=== PATIENT | female | born 1940 | race Caucasian/White ===

== ENCOUNTER 2022-08-21 07:53 | Day surgery (SDC) | payer MEDICARE, BC ==
[2022-08-21] VITALS (12 sets, daily range): BP systolic 155–180; BP diastolic 61–87
[~2022-08-21] VITALS: Ht 154.9 cm; Wt 74.2 kg
[~2022-08-21 07:53] MED LIST: ASCO500C18 PO; ASPI81TA52 PO; ATOR20TA PO; CALC-336 PO; CHOL500049 PO; FISH OIL OMEGA 3 PO; FLAX10007 PO; LOSA100T58 PO; MAGN200T PO; MULT-1085 PO; NAPR220T67 PO; PROBIOTIC 10 PO; PSYL PO; TOLT4CAP28 PO; UBID200C18 PO; VITA400T10 PO; cefazolin 2gm/D5W 100mL 100 ML IV ONE; famotidine 20mg tablet PO ONE; ringers solution, lacted 1,000 ML IV SCH
[2022-08-21 09:51] LABS: BASOPHILS % (AUTO) 0.6 % (0-1); EOSINOPHILS # (AUTO) 0.2 X10'3 (0-0.9); EOSINOPHILS % (AUTO) 2.6 % (0-6); HEMATOCRIT 43.1 % (35.0-45.0); HEMOGLOBIN 14.2 g/dl (12.0-16.0); LYMPHOCYTES # (AUTO) 1.8 X10'3 (1.1-4.8); LYMPHOCYTES % (AUTO) 25.9 % (21-51); MEAN CORPUSCULAR HEMOGLOBIN 29.9 PG (27.0-31.0); MEAN CORPUSCULAR HGB CONC 32.9 g/dL (33.0-36.5); MEAN PLATELET VOLUME 7.7 FL (7.4-10.4); MONOCYTES # (AUTO) 0.5 X10'3 (0-0.9); MONOCYTES % (AUTO) 7.5 % (2-12); NEUTROPHILS # (AUTO) 4.4 X10'3 (1.8-7.7); NEUTROPHILS % (AUTO) 63.4 % (42-75); PLATELET COUNT 182 X10'3 (140-440); RED BLOOD COUNT 4.74 X10'6 (4.20-5.60); RED CELL DISTRIBUTION WIDTH 13.9 % (11.5-14.5)
[2022-08-21 10:03] LABS: ALANINE AMINOTRANSFERASE 13 U/L (12-78); ALBUMIN 3.4 G/DL (3.4-5.0); ALBUMIN/GLOBULIN RATIO 1.1 (1.1-1.5); ALKALINE PHOSPHATASE 88 IU/L (46-116); ANION GAP 6 (8-16); ASPARTATE AMINO TRANSFERASE 23 U/L (10-37); BILIRUBIN,TOTAL 0.6 MG/DL (0.1-1.0); BLOOD UREA NITROGEN 15 MG/DL (7-18); BUN/CREATININE RATIO 21.7 (10.0-20.0); CALCIUM 8.8 MG/DL (8.5-10.1); CHLORIDE 110 MMOL/L (99-107); CREATININE 0.69 MG/DL (0.40-0.90); GLUCOSE 98 MG/DL (70-104); SODIUM 143 MMOL/L (135-145); TOTAL CARBON DIOXIDE 26.6 MMOL/L (24-32); TOTAL PROTEIN 6.4 G/DL (6.4-8.2); eGFR 82 ML/MIN
[2022-08-21] MEDS ORDERED: bacitracin 15gm ointment TP ONE (13:27)
[2022-08-21] MEDS ORDERED: BUPIVAcaine/PF 2.5 mg/ml (0.25%) 30ml vial IJ ONE ×2 (13:35→15:31)
[2022-08-21] MEDS ORDERED: BUPIVAcaine/PF 2.5 mg/ml (0.25%) 30ml vial ONE (15:00)
[2022-08-21] MEDS ORDERED: sevoflurane 250ml liquid IH ONE (15:02)
[2022-08-21] MEDS ORDERED: fentaNYL/PF 50MCG/1 ML 2ML syringe ONE (15:02)
[2022-08-21] MEDS ORDERED: midazolam 1 mg/ML 2ml injection ONE (15:02)
[2022-08-21] MEDS ORDERED: dexamethasone sod phosphate 4mg/ml inj. ONE (15:03)
[2022-08-21] MEDS ORDERED: propofol inj 20 ML IV ONE (15:03)
[2022-08-21] MEDS ORDERED: ondansetron/PF 4mg/2ml inj ONE (15:03)
[2022-08-21] MEDS ORDERED: ROPIVAcaine 0.5% (5mg/ml) 30ml vial ONE (15:03)
[2022-08-21] MEDS ORDERED: LIDOcaine 2% (20mg/ml) 5ml vial ONE (15:03)
[2022-08-21] MEDS ORDERED: ringers solution, lacted 1,000 ML IV SCH (15:40)
[2022-08-21] MEDS ORDERED: morphine 2 MG/ML inj. syringe IV PRN (15:40)
[2022-08-21] MEDS ORDERED: hydrALAZINE 20mg/ml inj. IV PRN (15:40)
[2022-08-21] MEDS ORDERED: ondansetron/PF 4mg/2ml inj IV PRN (15:40)
[2022-08-21] MEDS ORDERED: labetalol 20mg/4ml (5mg/ml) syringe IV PRN (15:40)
[2022-08-21] MEDS ORDERED: morphine 4 MG/ML inj SYRINge IV PRN (15:40)
[2022-08-21] MEDS ORDERED: fentaNYL/PF 50MCG/1 ML 2ML syringe IV PRN ×2 (15:40)
--- NOTE | 2022-08-21 16:14 | NUR ---
Received from OR via [facility], accompanied by Anesthesiologist DR BAUER and report given by Anesthesiologist AND PUMP SERVICER HELPER. PT DROWSY, DENIES PAIN. LEFT FOOT W/BIAS DRSG COVERING DRSG/INCISION FROM TOES TO ABOVE ANKLE CDI. Addendum: 08/21/22 at 1809 by Dulce Moscoso RN Amended: Links added.
--- NOTE | 2022-08-21 17:54 | NUR ---
PT UP W/ASSIST IN WALKING BOOT [place] [facility] [place]. D/C INSTRUCTIONS GIVEN AND GONE OVER W/PT WHO VERBALIZED UNDERSTANDING. PT D/CD TO HOME VIA W/C TO PRIVATE VEHICLE W/O INCIDENT. Addendum: 08/21/22 at 1815 by Dulce Moscoso RN Amended: Links added.
== END 2022-08-21 17:54 | disposition home or self-care (01) ==
LOC: PAS 07:53
PROVIDERS: ATTEND Podiatrist Foot & Ankle Surgery
DX: M19.072 Primary osteoarthritis, left ankle and foot (principal); M20.22 Hallux rigidus, left foot; I10 Essential (primary) hypertension; F40.240 Claustrophobia; Z79.899 Other long term (current) drug therapy; Z79.82 Long term (current) use of aspirin; Z98.890 Other specified postprocedural states; Z87.891 Personal history of nicotine dependence; Z90.49 Acquired absence of other specified parts of digestive tract; Z90.710 Acquired absence of both cervix and uterus
CPT/HCPCS: 28750; 36415; 73620; 80053; 82948; 85025; A6223; C1713; J0690; J1100; J2250; J2405; J2704; J2795; J3010; J3490; J7030; J7120; Z7506; Z7508; Z7512; 76000; A4215; A4618; A6449; A7000